=== PATIENT | male | born 1990 ===

== ENCOUNTER 2023-01-19 19:52 | Emergency (ER) | payer SELFPAY ==
[2023-01-19 19:53] VITALS: BP 157/94; PULSE 122; RESP 18; TEMP 36.6; O2SAT 98; BMI 20.9
--- NOTE | 2023-01-19 20:10 | ED.RN ---
Pt called back from triage and walks back to room 20, patient sits his suitcase down and then states actually im leaving, i got a detox room somewhere else Pt walks out of the department.
[2023-01-19 20:27] LABS: Amphetamine Urine VISTA POSITIVE (<1000 ng/mL); Barbiturate Urine VISTA NEGATIVE (< 200 ng/mL); Benzodiazepine Urine VISTA NEGATIVE (< 200 ng/mL); Cocaine Urine VISTA NEGATIVE (< 300 ng/mL); Ecstacy Urine VISTA POSITIVE (< 500 ng/mL); Methadone Urine VISTA NEGATIVE (< 300 ng/mL); PCP Urine VISTA NEGATIVE (< 25 ng/mL); THC Urine VISTA NEGATIVE (< 50 ng/mL); Vista UDS pH Range 4
== END 2023-01-19 20:08 | disposition left against medical advice (07) ==
LOC: ED 20:12
DX: Z00.00 Encounter for general adult medical examination without abnormal findings (principal)
CPT/HCPCS: 80307